=== PATIENT | female | born 1960 | race Caucasian/White ===

== ENCOUNTER 2016-06-05 13:46 | Emergency (ER) | payer OTHER ==
[~2016-06-05] VITALS: Ht 162.6 cm; Wt 104.5 kg
[~2016-06-05 13:46] MED LIST: REGLAN10 MG PO; ZOFRAN ODT4 MG PO; ZOFRAN4 MG PO
[2016-06-05 15:22] LABS: HEMATOCRIT 44.8 % (36.0-46.0); MCH 29.8 PG (29.0-34.0); MCHC 34.8 G/DL (30.0-36.0); MCV 85.7 FL (83-99); MEAN PLAT.VOLUME 9.1 uM^3 (9.5-12.4); PLATELET COUNT 321 K/uL (156-360); RBC DIS.WIDTH-CV 12.8 % (11.8-14.6); RBC DIS.WIDTH-SD 40.1 % (39-53); RED BLOOD COUNT 5.23 M/uL (3.80-5.20); WHITE BLOOD COUNT 7.4 K/uL (4.1-10.2)
[2016-06-05 15:27] LABS: CARBON DIOXIDE (BICARBONATE) 24.3 MEQ/L (20-31)
[2016-06-05 15:36] LABS: CHLORIDE 103 mEq/L (99-109); POTASSIUM 4.2 mEq/L (3.7-5.4); SODIUM 137 mEq/L (136-147)
[2016-06-05 15:38] LABS: GLUCOSE 329 mg/dL (70-99)
[2016-06-05 15:39] LABS: ANION GAP 17 MEQ/L (2-14)
[2016-06-05] MEDS ORDERED: OMEPRAZOLE20 MG PO (15:40)
[2016-06-05] MEDS ORDERED: LEXAPRO10 MG PO (15:40)
[2016-06-05] MEDS ORDERED: ATORVASTATIN CA40 MG PO (15:40)
[2016-06-05] MEDS ORDERED: WELLBUTRIN XL150 MG PO (15:41)
[2016-06-05] MEDS ORDERED: LISINOPRIL20 MG PO (15:41)
[2016-06-05 15:42] LABS: GFR ESTIMATE (CALCULATED) > 59 mL/min/
[2016-06-05] MEDS ORDERED: HUMULIN N100 UNITS/ SC ×2 (15:42)
[2016-06-05 15:43] LABS: UREA NITROGEN (BUN) 19 mg/dL (9-23)
[2016-06-05 15:46] LABS: TROP-I INTERPRETATION NEGATIVE; TROPONIN-I < 0.01 ng/mL (0.0-0.30)
[2016-06-05 18:56] LABS: ADD MIUA? NO; BILIRUBIN NEGATIVE; BLOOD NEGATIVE; COLOR YELLOW ((YELLOW)); GLUCOSE (STRIP) >=1000; KETONES 40; LEUKOCYTES NEGATIVE; NITRITE NEGATIVE; PROTEIN (STRIP) NEGATIVE; SPECIFIC GRAVITY 1.039 (1.000-1.030); UROBILINOGEN 0.2 MG/DL (0.2-1.0)
[2016-06-05] MEDS ORDERED: LORTAB 5-325 M1 EACH PO (21:29)
[2016-06-05] MEDS ORDERED: BENTYL20 MG PO (21:29)
[2016-06-05 21:53] VITALS: BP 116/63
== END 2016-06-05 21:56 | disposition home or self-care (01) ==
LOC: EME → EDBD 13:46 → EME 21:56
PROVIDERS: Physician Assistant
DX: R10.30 Lower abdominal pain, unspecified (principal); R11.2 Nausea with vomiting, unspecified; E11.9 Type 2 diabetes mellitus without complications
CPT/HCPCS: 74022; 74177; 80048; 81003; 82009; 82803; 84484; 85027; 93005; 99281; 99285; J1170; J2405; J2765; J7030; J7120

== ENCOUNTER 2016-09-12 12:36 | Emergency (ER) | payer OTHER ==
[~2016-09-12] VITALS: Ht 162.6 cm; Wt 105.0 kg
[~2016-09-12 12:36] MED LIST changes: +ATORVASTATIN CA40 MG PO; +BENTYL20 MG PO; +HUMULIN N100 UNITS/ SC; +LEXAPRO10 MG PO; +LISINOPRIL20 MG PO; +LORTAB 5-325 M1 EACH PO; +OMEPRAZOLE20 MG PO; +WELLBUTRIN XL150 MG PO
[2016-09-12] MEDS ORDERED: ZITHROMAX500 MG PO (14:35)
[2016-09-12] MEDS ORDERED: DEBROX15 ML BOTH EARS (14:35)
[2016-09-12] MEDS ORDERED: CYMBALTA20 MG PO (14:39)
[2016-09-12] MEDS ORDERED: VITAMIN B122500 MCG PO (14:40)
[2016-09-12 14:51] VITALS: BP 117/87
== END 2016-09-12 14:46 | disposition home or self-care (01) ==
LOC: EME 12:36
DX: J06.9 Acute upper respiratory infection, unspecified (principal); H61.23 Impacted cerumen, bilateral; E11.9 Type 2 diabetes mellitus without complications; E78.5 Hyperlipidemia, unspecified; I10 Essential (primary) hypertension; K21.9 Gastro-esophageal reflux disease without esophagitis; Z79.4 Long term (current) use of insulin
CPT/HCPCS: 99281; 99284

== ENCOUNTER 2016-10-21 18:40 | Emergency (ER) | payer OTHER ==
[~2016-10-21] VITALS: Ht 162.6 cm; Wt 100.0 kg
[~2016-10-21 18:40] MED LIST changes: +CYMBALTA20 MG PO; +DEBROX15 ML BOTH EARS; +VITAMIN B122500 MCG PO; +ZITHROMAX500 MG PO
[2016-10-21 19:11] LABS: HEMATOCRIT 44.7 % (36.0-46.0); MCH 29.5 PG (29.0-34.0); MCHC 33.8 G/DL (30.0-36.0); MCV 87.5 FL (83-99); MEAN PLAT.VOLUME 9.5 uM^3 (9.5-12.4); PLATELET COUNT 321 K/uL (156-360); RBC DIS.WIDTH-CV 12.5 % (11.8-14.6); RED BLOOD COUNT 5.11 M/uL (3.80-5.20); WHITE BLOOD COUNT 8.4 K/uL (4.1-10.2)
[2016-10-21 19:19] LABS: CHLORIDE 99 mEq/L (99-109); POTASSIUM 5.4 mEq/L (3.7-5.4); SODIUM 133 mEq/L (136-147)
[2016-10-21 19:22] LABS: ANION GAP 12 MEQ/L (2-14)
[2016-10-21 19:23] LABS: TOTAL BILIRUBIN 0.9 mg/dL (0.0-1.0)
[2016-10-21 19:24] LABS: ALKALINE PHOSPHATASE 147 IU/L (3-129)
[2016-10-21 19:25] LABS: GFR ESTIMATE (CALCULATED) > 59 mL/min/; GLUCOSE 445 mg/dL (70-99)
[2016-10-21 19:26] LABS: UREA NITROGEN (BUN) 23 mg/dL (9-23)
[2016-10-21 19:53] LABS: LIPASE 17 U/L (1.0-51.0)
[2016-10-21 21:03] LABS: ADD MIUA? YES; BILIRUBIN NEGATIVE; BLOOD NEGATIVE; COLOR STRAW ((YELLOW)); GLUCOSE (STRIP) >=500; KETONES 20; LEUKOCYTES SMALL; NITRITE NEGATIVE; PROTEIN (STRIP) NEGATIVE; SPECIFIC GRAVITY 1.045 (1.000-1.030); UROBILINOGEN 0.2 MG/DL (0.2-1.0)
[2016-10-21 21:11] LABS: BACTERIA NONE SEEN /HPF; EPITHELIAL CELLS 1+ /HPF; MUCUS NONE SEEN /LPF; UCUL ADDED? NO; WHITE BLOOD CELLS 15-20 /HPF (0-5)
[2016-10-21 21:55] LABS: POINT-OF-CARE METER ID UU13113702
[2016-10-21 23:44] VITALS: BP 172/77
[2016-10-22 08:37] LABS: POINT-OF-CARE METER ID UU13113702
== END 2016-10-21 23:46 | disposition home or self-care (01) ==
LOC: EME → EDBD 18:40 → EME 18:40
PROVIDERS: Emergency Medicine
DX: R10.9 Unspecified abdominal pain (principal); E11.43 Type 2 diabetes mellitus with diabetic autonomic (poly)neuropathy; K31.84 Gastroparesis; Z79.4 Long term (current) use of insulin; E78.5 Hyperlipidemia, unspecified; I10 Essential (primary) hypertension; K21.9 Gastro-esophageal reflux disease without esophagitis
CPT/HCPCS: 74177; 80053; 81003; 82948; 83690; 85027; 93005; 99281; 99285; J2270; J2405; J7030

== ENCOUNTER 2016-10-24 11:44 | Observation (INO) | payer OTHER ==
[~2016-10-24] VITALS: Ht 162.6 cm; Wt 101.3 kg
[2016-10-24 12:58] LABS: HEMATOCRIT 44.8 % (36.0-46.0); MCH 29.8 PG (29.0-34.0); MCHC 34.2 G/DL (30.0-36.0); MCV 87.3 FL (83-99); MEAN PLAT.VOLUME 9.5 uM^3 (9.5-12.4); PLATELET COUNT 290 K/uL (156-360); RBC DIS.WIDTH-CV 12.3 % (11.8-14.6); RBC DIS.WIDTH-SD 39.8 % (39-53); RED BLOOD COUNT 5.13 M/uL (3.80-5.20)
[2016-10-24 13:00] LABS: WHITE BLOOD COUNT 5.5 K/uL (4.1-10.2)
[2016-10-24 13:01] LABS: CHLORIDE 103 mEq/L (99-109); SODIUM 137 mEq/L (136-147)
[2016-10-24 13:02] LABS: POTASSIUM 3.6 mEq/L (3.7-5.4)
[2016-10-24 13:04] LABS: GLUCOSE 324 mg/dL (70-99)
[2016-10-24 13:05] LABS: ANION GAP 10 MEQ/L (2-14)
[2016-10-24 13:06] LABS: TOTAL BILIRUBIN 0.8 mg/dL (0.0-1.0)
[2016-10-24 13:07] LABS: ALKALINE PHOSPHATASE 119 IU/L (3-129); GFR ESTIMATE (CALCULATED) > 59 mL/min/
[2016-10-24 13:08] LABS: UREA NITROGEN (BUN) 19 mg/dL (9-23)
[2016-10-24 13:11] LABS: LIPASE 17 U/L (1.0-51.0)
[2016-10-24 14:40] LABS: ADD MIUA? NO; BILIRUBIN NEGATIVE; BLOOD NEGATIVE; COLOR YELLOW ((YELLOW)); GLUCOSE (STRIP) >=500; KETONES 20; LEUKOCYTES NEGATIVE; NITRITE NEGATIVE; PROTEIN (STRIP) NEGATIVE; SPECIFIC GRAVITY 1.026 (1.000-1.030); UCUL ADDED? NO; UROBILINOGEN 0.2 MG/DL (0.2-1.0)
[2016-10-24] MEDS ORDERED: VENLAFAXINE HC150 M1 PO (15:12)
[2016-10-24] MEDS ORDERED: GLIMEPIRIDE2 MG PO (16:44)
[2016-10-24 17:00] VITALS: BP 190/84
[2016-10-24 17:11] LABS: Estimated Average Glucose 249 mg/dL (70-123); HEMOGLOBIN A1c (GLYCOHEMOGLOB) 10.3 % HGB (Below 5.7)
[2016-10-24 19:00] VITALS: BP 119/57
[2016-10-24 23:34] VITALS: BP 100/50
[2016-10-25 03:33] VITALS: BP 109/66
[2016-10-25 05:36] LABS: HEMATOCRIT 40.1 % (36.0-46.0); MCH 30.9 PG (29.0-34.0); MCHC 34.2 G/DL (30.0-36.0); MCV 90.5 FL (83-99); MEAN PLAT.VOLUME 9.1 uM^3 (9.5-12.4); PLATELET COUNT 252 K/uL (156-360); RBC DIS.WIDTH-CV 12.6 % (11.8-14.6); RBC DIS.WIDTH-SD 41.7 % (39-53); RED BLOOD COUNT 4.43 M/uL (3.80-5.20); WHITE BLOOD COUNT 5.9 K/uL (4.1-10.2)
[2016-10-25 06:07] LABS: ALKALINE PHOSPHATASE 102 IU/L (3-129); ANION GAP 7 MEQ/L (2-14); CHLORIDE 108 MEQ/L (99-109); GFR ESTIMATE (CALCULATED) > 59 mL/min/; POTASSIUM 3.6 MEQ/L (3.7-5.4); SAMPLE HEMOLYSIS CHECK 0; SAMPLE ICTERIC CHECK 0; SAMPLE LIPEMIA CHECK 0; SODIUM 141 MEQ/L (136-147); TOTAL BILIRUBIN 0.6 MG/DL (0.0-1.0); UREA NITROGEN (BUN) 16 mg/dL (9-23)
[2016-10-25 06:11] LABS: GLUCOSE 153 mg/dL (70-99)
[2016-10-25 06:11] LABS: POINT-OF-CARE METER ID UU13113700
[2016-10-25 08:22] LABS: POINT-OF-CARE METER ID UU13113831
[2016-10-25 08:30] VITALS: BP 121/58
[2016-10-27 16:23] LABS: POINT-OF-CARE METER ID UU14100415
== END 2016-10-25 12:54 | disposition home or self-care (01) ==
LOC: EME → EDBD 11:44 → EDOF 15:36 → 5WEST 16:46
PROVIDERS: Emergency Medicine; Internal Medicine; Student in an Organized Health Care Education/Training Program
DX: R11.2 Nausea with vomiting, unspecified (principal); R10.13 Epigastric pain; E11.65 Type 2 diabetes mellitus with hyperglycemia; K80.20 Calculus of gallbladder without cholecystitis without obstruction; K21.9 Gastro-esophageal reflux disease without esophagitis; I10 Essential (primary) hypertension; M17.0 Bilateral primary osteoarthritis of knee; E78.5 Hyperlipidemia, unspecified; E66.9 Obesity, unspecified; Z68.38 Body mass index [BMI] 38.0-38.9, adult; Z79.4 Long term (current) use of insulin
CPT/HCPCS: 76705; 80053; 81003; 82948; 83036; 83690; 85027; 99281; 99284; C9113; G0378; J1650; J1815; J2270; J2405; J7030

== ENCOUNTER 2016-11-24 16:09 | Emergency (ER) | payer OTHER ==
[~2016-11-24] VITALS: Ht 162.6 cm; Wt 100.9 kg
[~2016-11-24 16:09] MED LIST changes: +GLIMEPIRIDE2 MG PO; +VENLAFAXINE HC150 M1 PO
[2016-11-24] MEDS ORDERED: NAPROXEN500 MG PO (19:29)
[2016-11-24 19:51] VITALS: BP 128/77
== END 2016-11-24 19:52 | disposition home or self-care (01) ==
LOC: EME 16:09
DX: S82.401A Unspecified fracture of shaft of right fibula, initial encounter for closed fracture (principal); M17.0 Bilateral primary osteoarthritis of knee; V49.40XA Driver injured in collision with unspecified motor vehicles in traffic accident, initial encounter; Z88.0 Allergy status to penicillin
CPT/HCPCS: 73564; 99281; 99283

== ENCOUNTER → 2016-12-01 | Outpatient (CLI) | payer OTHER ==
[~2016-12-01] MED LIST changes: +NAPROXEN500 MG PO
== END | disposition home or self-care (01) ==
LOC: NUC 11-19 10:00
DX: K80.20 Calculus of gallbladder without cholecystitis without obstruction (principal)
CPT/HCPCS: 78227; A9537; J2805

== ENCOUNTER 2016-12-17 07:25 | Day surgery (SDC) | payer OTHER ==
[~2016-12-17] VITALS: Ht 162.6 cm; Wt 102.0 kg
[~2016-12-17 07:25] MED LIST changes: +OMEPRAZOLE20 M2 PO; -OMEPRAZOLE20 MG PO
[2016-12-17 07:57] LABS: POINT-OF-CARE METER ID UU13113694
[2016-12-17 08:05] VITALS: BP 159/76
[2016-12-17] MEDS ORDERED: NORCO 5/3251 TABLET PO (12:12)
[2016-12-17 12:21] LABS: POINT-OF-CARE METER ID UU13113675; POINT-OF-CARE USER ID 515036437
[2016-12-17 13:55] VITALS: BP 106/57
[2016-12-17 14:55] VITALS: BP 117/57
[2016-12-17 16:15] VITALS: BP 113/55
== END 2016-12-17 16:15 | disposition home or self-care (01) ==
LOC: SDC 07:25
PROVIDERS: Surgery
PROC: 0FT44ZZ Resection of Gallbladder, Percutaneous Endoscopic Approach (ICD-10-PCS; principal; 2016-12-17)
DX: K80.10 Calculus of gallbladder with chronic cholecystitis without obstruction (principal); I10 Essential (primary) hypertension; E11.42 Type 2 diabetes mellitus with diabetic polyneuropathy; E78.00 Pure hypercholesterolemia, unspecified; K21.9 Gastro-esophageal reflux disease without esophagitis; Z79.4 Long term (current) use of insulin; Z88.0 Allergy status to penicillin
CPT/HCPCS: 82948; 88304; J0131; J0330; J1170; J1580; J2250; J2405; J2710; J3010; J7050; J7120; S0030

== ENCOUNTER 2017-01-19 15:28 | Emergency (ER) | payer OTHER ==
[~2017-01-19] VITALS: Ht 162.6 cm; Wt 103.6 kg
[~2017-01-19 15:28] MED LIST changes: +NORCO 5/3251 TABLET PO
[2017-01-19 16:23] LABS: HEMATOCRIT 46.2 % (36.0-46.0); MCH 29.2 PG (29.0-34.0); MCHC 33.3 G/DL (30.0-36.0); MCV 87.5 FL (83-99); MEAN PLAT.VOLUME 9.1 uM^3 (9.5-12.4); PLATELET COUNT 306 K/uL (156-360); RBC DIS.WIDTH-CV 13.2 % (11.8-14.6); RBC DIS.WIDTH-SD 42.5 % (39-53); RED BLOOD COUNT 5.28 M/uL (3.80-5.20); WHITE BLOOD COUNT 11.1 K/uL (4.1-10.2)
[2017-01-19 16:32] LABS: CHLORIDE 102 mEq/L (99-109); POTASSIUM 4.3 mEq/L (3.7-5.4); SODIUM 136 mEq/L (136-147)
[2017-01-19 16:34] LABS: GLUCOSE 387 mg/dL (70-99)
[2017-01-19 16:36] LABS: ANION GAP 12 MEQ/L (2-14)
[2017-01-19 16:38] LABS: GFR ESTIMATE (CALCULATED) > 59 mL/min/
[2017-01-19 16:39] LABS: UREA NITROGEN (BUN) 23 mg/dL (9-23)
[2017-01-19 16:44] LABS: D-DIMER ELISA < 150.00 ng/mLDDU (<230)
[2017-01-19 16:47] LABS: TROP-I INTERPRETATION NEGATIVE; TROPONIN-I 0.02 ng/mL (0.0-0.30)
[2017-01-19 19:18] LABS: TROP-I INTERPRETATION NEGATIVE; TROPONIN-I 0.02 ng/mL (0.0-0.30)
[2017-01-19 19:26] VITALS: BP 131/79
== END 2017-01-19 19:26 | disposition home or self-care (01) ==
LOC: EME 15:28
PROVIDERS: Nurse Practitioner Family
DX: R07.9 Chest pain, unspecified (principal); K21.9 Gastro-esophageal reflux disease without esophagitis; I10 Essential (primary) hypertension; E78.5 Hyperlipidemia, unspecified; E11.9 Type 2 diabetes mellitus without complications; Z87.442 Personal history of urinary calculi
CPT/HCPCS: 71020; 80048; 84484; 85027; 85379; 93005; 99281; 99284

== ENCOUNTER 2017-02-25 17:20 | Emergency (ER) | payer OTHER ==
[~2017-02-25] VITALS: Ht 162.6 cm; Wt 103.3 kg
[2017-02-25 18:28] LABS: HEMATOCRIT 44.7 % (36.0-46.0); MCHC 33.3 G/DL (30.0-36.0); MCV 87.1 FL (83-99); MEAN PLAT.VOLUME 9.1 uM^3 (9.5-12.4); PLATELET COUNT 279 K/uL (156-360); RBC DIS.WIDTH-CV 13.2 % (11.8-14.6); RBC DIS.WIDTH-SD 42.5 % (39-53); RED BLOOD COUNT 5.13 M/uL (3.80-5.20); WHITE BLOOD COUNT 6.5 K/uL (4.1-10.2)
[2017-02-25 18:37] LABS: CHLORIDE 104 mEq/L (99-109); SODIUM 138 mEq/L (136-147)
[2017-02-25 18:39] LABS: GLUCOSE 335 mg/dL (70-99)
[2017-02-25 18:40] LABS: ANION GAP 11 MEQ/L (2-14)
[2017-02-25 18:41] LABS: TOTAL BILIRUBIN 0.4 mg/dL (0.0-1.0)
[2017-02-25 18:42] LABS: ALKALINE PHOSPHATASE 147 IU/L (3-129)
[2017-02-25 18:42] LABS: ADD MIUA? YES; BILIRUBIN NEGATIVE; BLOOD NEGATIVE; COLOR YELLOW ((YELLOW)); GLUCOSE (STRIP) >=500; KETONES NEGATIVE; LEUKOCYTES TRACE; NITRITE NEGATIVE; PROTEIN (STRIP) NEGATIVE; SPECIFIC GRAVITY 1.032 (1.000-1.030); UROBILINOGEN 0.2 MG/DL (0.2-1.0)
[2017-02-25 18:43] LABS: GFR ESTIMATE (CALCULATED) > 59 mL/min/
[2017-02-25 18:44] LABS: UREA NITROGEN (BUN) 16 mg/dL (9-23)
[2017-02-25 18:46] LABS: LIPASE 26 U/L (1.0-51.0)
[2017-02-25 18:56] LABS: BACTERIA NONE SEEN /HPF; EPITHELIAL CELLS 1+ /HPF; MUCUS TRACE /LPF; UCUL ADDED? YES
[2017-02-25] MEDS ORDERED: ZOFRAN ODT4 MG PO (20:58)
[2017-02-25 21:02] VITALS: BP 128/92
== END 2017-02-25 21:09 | disposition home or self-care (01) ==
LOC: EME 17:20
DX: R11.2 Nausea with vomiting, unspecified (principal); E11.65 Type 2 diabetes mellitus with hyperglycemia; E78.5 Hyperlipidemia, unspecified; K21.9 Gastro-esophageal reflux disease without esophagitis; I10 Essential (primary) hypertension; F32.9 Major depressive disorder, single episode, unspecified; Z79.4 Long term (current) use of insulin; Z87.442 Personal history of urinary calculi; Z88.0 Allergy status to penicillin
CPT/HCPCS: 80053; 81003; 83690; 85027; 87086; 99281; 99285; J2270; J2405; J7030; S0028

== ENCOUNTER → 2017-02-25 | Outpatient (CLI) | payer OTHER | END | disposition home or self-care (01) | LOC: NUC 06:40 | DX: R68.81 Early satiety (principal) | CPT/HCPCS: 78264; A9541 ==

== ENCOUNTER 2017-05-03 18:58 | Emergency (ER) | payer OTHER ==
[~2017-05-03] VITALS: Ht 162.6 cm; Wt 103.6 kg
[~2017-05-03 18:58] MED LIST changes: +ANTIVERT25 MG PO
[2017-05-03 19:52] LABS: HEMATOCRIT 44.7 % (36.0-46.0); MCH 29.9 PG (29.0-34.0); MCHC 33.3 G/DL (30.0-36.0); MCV 89.6 FL (83-99); MEAN PLAT.VOLUME 8.7 uM^3 (9.5-12.4); PLATELET COUNT 294 K/uL (156-360); RBC DIS.WIDTH-CV 12.8 % (11.8-14.6); RED BLOOD COUNT 4.99 M/uL (3.80-5.20); WHITE BLOOD COUNT 6.4 K/uL (4.1-10.2)
[2017-05-03 20:01] LABS: CHLORIDE 103 mEq/L (99-109); POTASSIUM 3.9 mEq/L (3.7-5.4); SODIUM 137 mEq/L (136-147)
[2017-05-03 20:03] LABS: GLUCOSE 208 mg/dL (70-99)
[2017-05-03 20:05] LABS: ANION GAP 9 MEQ/L (2-14); TOTAL BILIRUBIN 0.3 mg/dL (0.0-1.0)
[2017-05-03 20:07] LABS: ALKALINE PHOSPHATASE 160 IU/L (3-129); GFR ESTIMATE (CALCULATED) > 59 mL/min/
[2017-05-03 20:08] LABS: UREA NITROGEN (BUN) 17 mg/dL (9-23)
[2017-05-03 20:10] LABS: LIPASE 25 U/L (1.0-51.0)
[2017-05-03 21:46] LABS: ADD MIUA? YES; BILIRUBIN NEGATIVE; BLOOD SMALL; COLOR YELLOW ((YELLOW)); GLUCOSE (STRIP) 50; KETONES NEGATIVE; LEUKOCYTES SMALL; NITRITE NEGATIVE; PROTEIN (STRIP) NEGATIVE; UROBILINOGEN 0.2 MG/DL (0.2-1.0)
[2017-05-03 21:59] LABS: BACTERIA RARE /HPF; EPITHELIAL CELLS 1+ /HPF; MUCUS TRACE /LPF; RED BLOOD CELLS 0-5 /HPF (0-5); UCUL ADDED? YES
[2017-05-03 22:50] VITALS: BP 149/85
== END 2017-05-03 22:50 | disposition home or self-care (01) ==
LOC: EME 18:58
DX: R10.30 Lower abdominal pain, unspecified (principal); R11.2 Nausea with vomiting, unspecified; R19.7 Diarrhea, unspecified; E11.9 Type 2 diabetes mellitus without complications; Z79.4 Long term (current) use of insulin; I10 Essential (primary) hypertension; E78.5 Hyperlipidemia, unspecified; Z87.442 Personal history of urinary calculi
CPT/HCPCS: 74177; 80053; 81003; 83690; 85027; 87086; 87177; 87493; 87506; 99281; 99285; J1885; J2405; J2765; J7030

== ENCOUNTER 2017-06-12 12:59 | Emergency (ER) | payer OTHER ==
[~2017-06-12] VITALS: Ht 162.6 cm; Wt 103.0 kg
[2017-06-12] MEDS ORDERED: FLEXERIL10 MG PO (15:43)
[2017-06-12] MEDS ORDERED: KEFLEX500 MG PO (15:43)
[2017-06-12] MEDS ORDERED: LIDODERM 5% P1 PATCH TD (15:43)
[2017-06-12] MEDS ORDERED: MOTRIN800 MG PO (15:43)
[2017-06-12 16:41] VITALS: BP 142/89
== END 2017-06-12 16:55 | disposition home or self-care (01) ==
LOC: EME 12:59
DX: S39.012A Strain of muscle, fascia and tendon of lower back, initial encounter (principal); S70.01XA Contusion of right hip, initial encounter; S80.01XA Contusion of right knee, initial encounter; L03.115 Cellulitis of right lower limb; W18.2XXA Fall in (into) shower or empty bathtub, initial encounter; Y93.E1 Activity, personal bathing and showering; E11.9 Type 2 diabetes mellitus without complications; Z79.4 Long term (current) use of insulin; E78.5 Hyperlipidemia, unspecified; F32.9 Major depressive disorder, single episode, unspecified; Z87.442 Personal history of urinary calculi; Z88.0 Allergy status to penicillin
CPT/HCPCS: 72100; 73502; 73564; 99281; 99284

== ENCOUNTER 2017-07-08 15:27 | Inpatient (IN) | payer OTHER ==
[~2017-07-08] VITALS: Ht 162.6 cm; Wt 103.8 kg
[~2017-07-08 15:27] MED LIST changes: +FLEXERIL10 MG PO; +KEFLEX500 MG PO; +LIDODERM 5% P1 PATCH TD; +MOTRIN800 MG PO
[2017-07-08 16:21] LABS: BASOPHIL (%) 0.2 % (0-1); EOSINOPHIL (%) 0.8 % (0-5); EOSINOPHIL COUNT 0.1 K/uL (0-0.3); HEMATOCRIT 42.2 % (36.0-46.0); HEMOGLOBIN 13.9 G/DL (11.9-15.5); IMMATURE GRANULOCYTE (%) 0.4 % (0.0-0.7); LYMPHOCYTE (%) 14.5 % (15-42); LYMPHOCYTE COUNT 1.5 K/uL (1.0-2.8); MCH 29.8 PG (29.0-34.0); MCHC 32.9 G/DL (30.0-36.0); MCV 90.4 FL (83-99); MONOCYTE (%) 7.4 % (3-12); MONOCYTE COUNT 0.8 K/uL (0-0.8); NEUTROPHIL (%) 76.7 % (45-76); NEUTROPHIL COUNT 7.8 K/uL (1.8-6.4); PLATELET COUNT 340 K/uL (156-360); RBC DIS.WIDTH-CV 13.6 % (11.8-14.6); RBC DIS.WIDTH-SD 45.1 % (39-53); RED BLOOD COUNT 4.67 M/uL (3.80-5.20); WHITE BLOOD COUNT 10.1 K/uL (4.1-10.2)
[2017-07-08 16:33] LABS: CHLORIDE 98 MEQ/L (99-109); POTASSIUM 3.7 MEQ/L (3.7-5.4); SODIUM 133 MEQ/L (136-147)
[2017-07-08 16:38] LABS: CREATININE 0.8 MG/DL (0.6-1.3); GFR ESTIMATE (CALCULATED) > 59 mL/min/; GLUCOSE 313 mg/dL (70-99); UREA NITROGEN (BUN) 18 mg/dL (9-23)
[2017-07-08] MEDS ORDERED: BACTRIM,SEPT1 TABLET PO (18:59)
[2017-07-08 19:55] LABS: BILIRUBIN NEGATIVE; BLOOD NEGATIVE; COLOR YELLOW ((YELLOW)); GLUCOSE (STRIP) >=500; KETONES 5; LEUKOCYTES NEGATIVE; NITRITE NEGATIVE; PROTEIN (STRIP) 30; SPECIFIC GRAVITY 1.037 (1.000-1.030); UROBILINOGEN 0.2 MG/DL (0.2-1.0)
[2017-07-08 20:03] LABS: APPEARANCE CLOUDY ((CLEAR))
[2017-07-08 20:38] LABS: BACTERIA 1+ /HPF; EPITHELIAL CELLS 4+ /HPF; MUCUS NONE SEEN /LPF; RED BLOOD CELLS NONE SEEN /HPF (0-5); UCUL ADDED? NO; WHITE BLOOD CELLS RARE /HPF (0-5)
[2017-07-08] MEDS ORDERED: LOVAZA1 GM PO (21:39)
[2017-07-08] MEDS ORDERED: CHILD ASPIRIN81 M1 PO (21:39)
[2017-07-08] MEDS ORDERED: CENTRUM SILVER1 EAC4 PO (21:40)
[2017-07-08] MEDS ORDERED: TYLENOL EXTRA500 MG PO (21:40)
[2017-07-08] MEDS ORDERED: BASAGLAR K100 UNIT/1 SC (21:40)
[2017-07-08] MEDS ORDERED: CLARITIN,ALAVAR10 MG PO (21:41)
[2017-07-08 21:57] VITALS: BP 178/78
[2017-07-08 23:50] VITALS: BP 140/65
[2017-07-09 03:59] VITALS: BP 138/62
[2017-07-09 06:33] LABS: BASOPHIL (%) 0.2 % (0-1); EOSINOPHIL (%) 1.2 % (0-5); EOSINOPHIL COUNT 0.1 K/uL (0-0.3); HEMATOCRIT 37.3 % (36.0-46.0); HEMOGLOBIN 12.3 G/DL (11.9-15.5); IMMATURE GRANULOCYTE (%) 0.5 % (0.0-0.7); LYMPHOCYTE (%) 16.7 % (15-42); LYMPHOCYTE COUNT 1.4 K/uL (1.0-2.8); MCH 29.9 PG (29.0-34.0); MCV 90.5 FL (83-99); MONOCYTE (%) 9.4 % (3-12); MONOCYTE COUNT 0.8 K/uL (0-0.8); NEUTROPHIL COUNT 5.8 K/uL (1.8-6.4); PLATELET COUNT 289 K/uL (156-360); RBC DIS.WIDTH-CV 13.6 % (11.8-14.6); RBC DIS.WIDTH-SD 45.1 % (39-53); RED BLOOD COUNT 4.12 M/uL (3.80-5.20); WHITE BLOOD COUNT 8.1 K/uL (4.1-10.2)
[2017-07-09 06:55] LABS: ALBUMIN 3.3 G/DL (3.2-4.8); ALKALINE PHOSPHATASE 132 IU/L (3-129); ALT (GPT) 20 IU/L (3-49); AST (GOT) 16 IU/L (2-34); CHLORIDE 106 MEQ/L (99-109); CREATININE 0.5 MG/DL (0.6-1.3); GFR ESTIMATE (CALCULATED) > 59 mL/min/; GLUCOSE 194 mg/dL (70-99); MAGNESIUM 1.9 mg/dl (1.3-2.7); PHOSPHORUS 3.2 mg/dL (2.5-4.9); SODIUM 139 MEQ/L (136-147); TOTAL BILIRUBIN 0.5 MG/DL (0.0-1.0); TOTAL PROTEIN 6.3 G/DL (6.4-8.3); UREA NITROGEN (BUN) 14 mg/dL (9-23)
[2017-07-09 07:32] VITALS: BP 122/58
[2017-07-09 12:01] VITALS: BP 138/67
[2017-07-09 17:33] VITALS: BP 133/64
[2017-07-09 20:24] VITALS: BP 111/57
[2017-07-10] VITALS (7 sets, daily range): BP systolic 96–127; BP diastolic 44–61
[2017-07-11 03:34] VITALS: BP 117/57
[2017-07-11 08:00] VITALS: BP 128/65
[2017-07-11 12:00] VITALS: BP 157/67
[2017-07-11 16:00] VITALS: BP 139/69
[2017-07-11 23:52] VITALS: BP 163/71
[2017-07-12 07:06] LABS: HEMATOCRIT 32.9 % (36.0-46.0); HEMOGLOBIN 10.7 G/DL (11.9-15.5); MCH 29.3 PG (29.0-34.0); MCHC 32.5 G/DL (30.0-36.0); MCV 90.1 FL (83-99); PLATELET COUNT 362 K/uL (156-360); RBC DIS.WIDTH-CV 13.2 % (11.8-14.6); RBC DIS.WIDTH-SD 44.4 % (39-53); RED BLOOD COUNT 3.65 M/uL (3.80-5.20); WHITE BLOOD COUNT 7.7 K/uL (4.1-10.2)
[2017-07-12 07:32] LABS: CHLORIDE 104 MEQ/L (99-109); CREATININE 0.5 MG/DL (0.6-1.3); GFR ESTIMATE (CALCULATED) > 59 mL/min/; GLUCOSE 126 mg/dL (70-99); SODIUM 140 MEQ/L (136-147); UREA NITROGEN (BUN) 12 mg/dL (9-23)
[2017-07-12 07:32] LABS: BASOPHIL (%) 0.3 % (0-1); EOSINOPHIL (%) 1.7 % (0-5); EOSINOPHIL COUNT 0.1 K/uL (0-0.3); IMMATURE GRANULOCYTE (%) 0.4 % (0.0-0.7); LYMPHOCYTE (%) 23.1 % (15-42); LYMPHOCYTE COUNT 1.8 K/uL (1.0-2.8); MONOCYTE (%) 9.9 % (3-12); MONOCYTE COUNT 0.8 K/uL (0-0.8); NEUTROPHIL (%) 64.6 % (45-76)
[2017-07-12 08:00] VITALS: BP 150/78
[2017-07-12 16:00] VITALS: BP 124/58
[2017-07-13 00:18] VITALS: BP 135/64
[2017-07-13 07:40] VITALS: BP 127/64
[2017-07-13 16:28] VITALS: BP 130/70
[2017-07-13 23:05] VITALS: BP 148/67
[2017-07-14 07:02] VITALS: BP 119/67
[2017-07-14 11:34] VITALS: BP 123/58
[2017-07-14 16:00] VITALS: BP 146/65
[2017-07-14 23:22] VITALS: BP 128/62
[2017-07-15 08:00] VITALS: BP 111/53
[2017-07-15 12:00] VITALS: BP 126/59
[2017-07-15 16:26] VITALS: BP 156/67
[2017-07-16 00:41] VITALS: BP 135/61
[2017-07-16 06:21] LABS: BASOPHIL (%) 0.3 % (0-1); EOSINOPHIL (%) 1.5 % (0-5); EOSINOPHIL COUNT 0.1 K/uL (0-0.3); HEMATOCRIT 36.7 % (36.0-46.0); HEMOGLOBIN 11.9 G/DL (11.9-15.5); IMMATURE GRANULOCYTE (%) 0.5 % (0.0-0.7); LYMPHOCYTE (%) 27.3 % (15-42); MCH 29.6 PG (29.0-34.0); MCHC 32.4 G/DL (30.0-36.0); MCV 91.3 FL (83-99); MONOCYTE (%) 7.5 % (3-12); MONOCYTE COUNT 0.6 K/uL (0-0.8); NEUTROPHIL (%) 62.9 % (45-76); NEUTROPHIL COUNT 4.7 K/uL (1.8-6.4); PLATELET COUNT 390 K/uL (156-360); RBC DIS.WIDTH-CV 13.2 % (11.8-14.6); RBC DIS.WIDTH-SD 43.8 % (39-53); RED BLOOD COUNT 4.02 M/uL (3.80-5.20); WHITE BLOOD COUNT 7.4 K/uL (4.1-10.2)
[2017-07-16 06:44] LABS: CHLORIDE 104 MEQ/L (99-109); CREATININE 0.5 MG/DL (0.6-1.3); GFR ESTIMATE (CALCULATED) > 59 mL/min/; GLUCOSE 131 mg/dL (70-99); POTASSIUM 4.2 MEQ/L (3.7-5.4); SODIUM 142 MEQ/L (136-147); UREA NITROGEN (BUN) 13 mg/dL (9-23)
[2017-07-16 07:16] VITALS: BP 139/63
[2017-07-16] MEDS ORDERED: ENDOCET 5-3251 EACH PO (13:18)
== END 2017-07-16 16:46 | disposition home health service (06) | DRG 579 ==
LOC: EME 15:27 → EDOF 20:15 → 2EAST 20:15 → ENRESERV 20:20 → 2EAST 21:32
PROVIDERS: Internal Medicine; Nurse Practitioner Family; Physician Assistant; Surgery
DX: L03.116 Cellulitis of left lower limb (principal); M79.5 Residual foreign body in soft tissue; S90.852A Superficial foreign body, left foot, initial encounter; L03.115 Cellulitis of right lower limb; J18.9 Pneumonia, unspecified organism; Z68.39 Body mass index [BMI] 39.0-39.9, adult; E11.628 Type 2 diabetes mellitus with other skin complications; S91.301A Unspecified open wound, right foot, initial encounter; S91.302A Unspecified open wound, left foot, initial encounter; E66.9 Obesity, unspecified; M71.20 Synovial cyst of popliteal space [Baker], unspecified knee; B37.0 Candidal stomatitis; F32.9 Major depressive disorder, single episode, unspecified; W45.8XXA Other foreign body or object entering through skin, initial encounter; I10 Essential (primary) hypertension; K21.9 Gastro-esophageal reflux disease without esophagitis; E11.42 Type 2 diabetes mellitus with diabetic polyneuropathy; E78.5 Hyperlipidemia, unspecified; E78.00 Pure hypercholesterolemia, unspecified; B96.7 Clostridium perfringens [C. perfringens] as the cause of diseases classified elsewhere; Z87.442 Personal history of urinary calculi; Z87.11 Personal history of peptic ulcer disease; Z79.899 Other long term (current) drug therapy; Z79.4 Long term (current) use of insulin; Z79.2 Long term (current) use of antibiotics; Z90.49 Acquired absence of other specified parts of digestive tract
CPT/HCPCS: 71046; 73630; 73720; 76000; 76937; 80048; 80053; 81003; 82948; 83605; 83735; 84100; 85025; 87040; 87070; 87075; 87076; 87205; 87502; 88300; 88304; 93971; 99281; 99285; A6260; C1894; J0131; J0295; J0696; J1650; J1815; J2250; J2405; J3010; J3370; J7050; S0020

== ENCOUNTER → 2017-07-23 | Outpatient (CLI) | payer OTHER ==
[~2017-07-23] MED LIST changes: +BACTRIM,SEPT1 TABLET PO; +BASAGLAR K100 UNIT/1 SC; +CENTRUM SILVER1 EAC4 PO; +CHILD ASPIRIN81 M1 PO; +CLARITIN,ALAVAR10 MG PO; +ENDOCET 5-3251 EACH PO; +LOVAZA1 GM PO; +TYLENOL EXTRA500 MG PO
== END | disposition home or self-care (01) ==
LOC: PICC 14:00
DX: L02.612 Cutaneous abscess of left foot (principal); B96.7 Clostridium perfringens [C. perfringens] as the cause of diseases classified elsewhere; Z98.890 Other specified postprocedural states; J18.9 Pneumonia, unspecified organism
CPT/HCPCS: 76937

== ENCOUNTER 2017-08-18 15:10 | Inpatient (IN) | payer OTHER ==
[~2017-08-18] VITALS: Ht 162.6 cm; Wt 103.3 kg
[2017-08-18 15:55] LABS: HEMATOCRIT 41.4 % (36.0-46.0); HEMOGLOBIN 14.1 G/DL (11.9-15.5); MCH 29.5 PG (29.0-34.0); MCHC 34.1 G/DL (30.0-36.0); MCV 86.6 FL (83-99); PLATELET COUNT 321 K/uL (156-360); RBC DIS.WIDTH-CV 13.5 % (11.8-14.6); RBC DIS.WIDTH-SD 42.6 % (39-53); RED BLOOD COUNT 4.78 M/uL (3.80-5.20); WHITE BLOOD COUNT 6.2 K/uL (4.1-10.2)
[2017-08-18 16:03] LABS: ALBUMIN 3.7 g/dL (3.2-4.8)
[2017-08-18 16:04] LABS: CHLORIDE 99 mEq/L (99-109); POTASSIUM 3.9 mEq/L (3.7-5.4); SODIUM 135 mEq/L (136-147)
[2017-08-18 16:06] LABS: GLUCOSE 365 mg/dL (70-99); TOTAL PROTEIN 7.2 g/dL (6.4-8.3)
[2017-08-18 16:08] LABS: TOTAL BILIRUBIN 0.5 mg/dL (0.0-1.0)
[2017-08-18 16:09] LABS: ALKALINE PHOSPHATASE 137 IU/L (3-129)
[2017-08-18 16:10] LABS: CREATININE 0.8 mg/dL (0.6-1.3); GFR ESTIMATE (CALCULATED) > 59 mL/min/
[2017-08-18 16:11] LABS: UREA NITROGEN (BUN) 13 mg/dL (9-23)
[2017-08-18 16:12] LABS: ALT (GPT) 13 IU/L (3-49); AST (GOT) 11 IU/L (2-34)
[2017-08-18 16:27] LABS: LIPASE 12 U/L (1.0-51.0)
[2017-08-18 17:17] LABS: APPEARANCE SL.HAZY ((CLEAR)); BILIRUBIN NEGATIVE; BLOOD NEGATIVE; COLOR YELLOW ((YELLOW)); GLUCOSE (STRIP) >=500; KETONES NEGATIVE; LEUKOCYTES NEGATIVE; NITRITE NEGATIVE; PROTEIN (STRIP) NEGATIVE; SPECIFIC GRAVITY 1.031 (1.000-1.030); UROBILINOGEN 0.2 MG/DL (0.2-1.0)
[2017-08-18 17:37] LABS: AMPHETAMINE NEGATIVE (500 ng/mL); BENZODIAZEPINES NEGATIVE (150 ng/mL); COCAINE NEGATIVE (150 ng/mL); METHAMPHETAMINE NEGATIVE (500 ng/mL); OPIATES (MORPHINE) NEGATIVE (100 ng/mL); PHENCYCLIDINE NEGATIVE (25 ng/mL); THC CANNABINOIDS NEGATIVE (50 ng/mL)
[2017-08-18 17:38] LABS: BARBITURATES NEGATIVE (200 ng/mL); BUPRENORPHINE NEGATIVE (10 ng/mL); METHADONE NEGATIVE (200 ng/mL); OXYCODONE PRESUMPTIVE POSITIVE (100 ng/mL); PROPOXYPHENE NEGATIVE (300 ng/mL); TRICYCLIC ANTIDEPRESSANTS NEGATIVE (300 ng/mL)
[2017-08-18 17:39] LABS: BACTERIA RARE /HPF; EPITHELIAL CELLS 1+ /HPF; MUCUS TRACE /LPF; UCUL ADDED? NO; WHITE BLOOD CELLS 0-5 /HPF (0-5)
[2017-08-19 03:18] VITALS: BP 160/69
[2017-08-19 07:11] VITALS: BP 101/59
[2017-08-19] MEDS ORDERED: LOVAZA1 GM PO (12:04)
[2017-08-19] MEDS ORDERED: ZOSYN 3.373.375 GM/5 IV (12:05)
[2017-08-19 15:01] VITALS: BP 158/70
[2017-08-19 23:29] VITALS: BP 110/54
[2017-08-20 06:05] LABS: HEMOGLOBIN 12.5 G/DL (11.9-15.5); MCH 29.3 PG (29.0-34.0); MCHC 32.9 G/DL (30.0-36.0); MCV 89.2 FL (83-99); NRBC (%) 0.4 /100 WBC (0-0); PLATELET COUNT 276 K/uL (156-360); RBC DIS.WIDTH-CV 13.8 % (11.8-14.6); RBC DIS.WIDTH-SD 44.9 % (39-53); RED BLOOD COUNT 4.26 M/uL (3.80-5.20); WHITE BLOOD COUNT 4.7 K/uL (4.1-10.2)
[2017-08-20 06:28] LABS: CHLORIDE 103 MEQ/L (99-109); CREATININE 0.6 MG/DL (0.6-1.3); GFR ESTIMATE (CALCULATED) > 59 mL/min/; GLUCOSE 228 mg/dL (70-99); POTASSIUM 3.5 MEQ/L (3.7-5.4); SODIUM 140 MEQ/L (136-147); UREA NITROGEN (BUN) 8 mg/dL (9-23)
[2017-08-20 08:03] VITALS: BP 122/58
[2017-08-20 11:04] VITALS: BP 128/70
[2017-08-20 19:20] VITALS: BP 138/64
[2017-08-21 00:09] VITALS: BP 136/63
[2017-08-21 04:13] VITALS: BP 105/49
[2017-08-21 07:05] VITALS: BP 124/58
[2017-08-21 11:29] VITALS: BP 138/58
[2017-08-21 15:53] VITALS: BP 136/62
[2017-08-21 23:46] VITALS: BP 117/56
[2017-08-22 06:09] LABS: HEMATOCRIT 33.5 % (36.0-46.0); HEMOGLOBIN 11.1 G/DL (11.9-15.5); MCH 29.4 PG (29.0-34.0); MCHC 33.1 G/DL (30.0-36.0); MCV 88.6 FL (83-99); PLATELET COUNT 252 K/uL (156-360); RBC DIS.WIDTH-CV 13.8 % (11.8-14.6); RBC DIS.WIDTH-SD 44.9 % (39-53); RED BLOOD COUNT 3.78 M/uL (3.80-5.20); WHITE BLOOD COUNT 6.1 K/uL (4.1-10.2)
[2017-08-22 06:38] LABS: CHLORIDE 102 MEQ/L (99-109); CREATININE 0.6 MG/DL (0.6-1.3); GFR ESTIMATE (CALCULATED) > 59 mL/min/; GLUCOSE 291 mg/dL (70-99); POTASSIUM 3.7 MEQ/L (3.7-5.4); SODIUM 139 MEQ/L (136-147); UREA NITROGEN (BUN) 4 mg/dL (9-23)
[2017-08-22 07:04] VITALS: BP 116/55
[2017-08-22 15:06] VITALS: BP 134/71
[2017-08-23 00:53] VITALS: BP 122/58
[2017-08-23 06:44] LABS: HEMATOCRIT 34.5 % (36.0-46.0); MCH 28.1 PG (29.0-34.0); MCHC 31.9 G/DL (30.0-36.0); PLATELET COUNT 286 K/uL (156-360); RBC DIS.WIDTH-CV 13.9 % (11.8-14.6); RBC DIS.WIDTH-SD 44.9 % (39-53); RED BLOOD COUNT 3.92 M/uL (3.80-5.20); WHITE BLOOD COUNT 4.6 K/uL (4.1-10.2)
[2017-08-23 07:02] LABS: CHLORIDE 102 MEQ/L (99-109); CREATININE 0.5 MG/DL (0.6-1.3); GFR ESTIMATE (CALCULATED) > 59 mL/min/; GLUCOSE 296 mg/dL (70-99); POTASSIUM 3.7 MEQ/L (3.7-5.4); SODIUM 136 MEQ/L (136-147); UREA NITROGEN (BUN) 8 mg/dL (9-23)
[2017-08-23 08:34] VITALS: BP 146/65
[2017-08-23] MEDS ORDERED: LEVOFLOXACIN750 MG PO (12:19)
== END 2017-08-23 13:52 | disposition home health service (06) | DRG 617 ==
LOC: EME 15:10 → 5SOUTH 08-19 00:31 → EDOF 08-19 00:31 → ENRESERV 08-19 00:40 → 5SOUTH 08-19 02:48 → ENPENDDIS 08-23 12:30 → 5SOUTH 08-23 13:52
PROVIDERS: Emergency Medicine; Hospitalist; Internal Medicine
DX: E11.69 Type 2 diabetes mellitus with other specified complication (principal); M86.172 Other acute osteomyelitis, left ankle and foot; L03.116 Cellulitis of left lower limb; E11.621 Type 2 diabetes mellitus with foot ulcer; L97.528 Non-pressure chronic ulcer of other part of left foot with other specified severity; E11.42 Type 2 diabetes mellitus with diabetic polyneuropathy; E11.65 Type 2 diabetes mellitus with hyperglycemia; E11.319 Type 2 diabetes mellitus with unspecified diabetic retinopathy without macular edema; E87.6 Hypokalemia; B96.5 Pseudomonas (aeruginosa) (mallei) (pseudomallei) as the cause of diseases classified elsewhere; Z16.39 Resistance to other specified antimicrobial drug; I10 Essential (primary) hypertension; E78.5 Hyperlipidemia, unspecified; K21.9 Gastro-esophageal reflux disease without esophagitis; F32.9 Major depressive disorder, single episode, unspecified; K59.00 Constipation, unspecified; E66.9 Obesity, unspecified; Z68.39 Body mass index [BMI] 39.0-39.9, adult; Z79.4 Long term (current) use of insulin; Z79.82 Long term (current) use of aspirin; Z87.01 Personal history of pneumonia (recurrent); Z87.442 Personal history of urinary calculi
CPT/HCPCS: 71045; 73630; 74176; 80048; 80053; 81003; 82948; 83036; 83690; 85027; 87070; 87075; 87077; 87116; 87186; 87205; 87206; 88305; 88311; 93005; 97597; 99213 25; 99281; 99285; J0131; J1644; J1815; J1885; J1940; J2060; J2250; J2270; J2405; J2543; J3370; J7030; J7040; J7050; S0020; S0028

== ENCOUNTER 2017-09-05 04:25 | Emergency (ER) | payer OTHER ==
[~2017-09-05] VITALS: Ht 162.6 cm; Wt 99.1 kg
[~2017-09-05 04:25] MED LIST changes: +LEVOFLOXACIN750 MG PO; +ZOSYN 3.373.375 GM/5 IV
[2017-09-05 05:08] LABS: HEMATOCRIT 42.8 % (36.0-46.0); HEMOGLOBIN 14.4 G/DL (11.9-15.5); MCH 28.9 PG (29.0-34.0); MCHC 33.6 G/DL (30.0-36.0); MCV 85.9 FL (83-99); PLATELET COUNT 305 K/uL (156-360); RBC DIS.WIDTH-CV 13.4 % (11.8-14.6); RBC DIS.WIDTH-SD 41.9 % (39-53); RED BLOOD COUNT 4.98 M/uL (3.80-5.20); WHITE BLOOD COUNT 7.3 K/uL (4.1-10.2)
[2017-09-05 05:15] LABS: ALBUMIN 3.9 g/dL (3.2-4.8); CHLORIDE 101 mEq/L (99-109); POTASSIUM 5.1 mEq/L (3.7-5.4); SODIUM 137 mEq/L (136-147)
[2017-09-05 05:17] LABS: TOTAL PROTEIN 6.7 g/dL (6.4-8.3)
[2017-09-05 05:19] LABS: GLUCOSE 436 mg/dL (70-99); TOTAL BILIRUBIN 0.8 mg/dL (0.0-1.0)
[2017-09-05 05:21] LABS: ALKALINE PHOSPHATASE 165 IU/L (3-129); CREATININE 0.9 mg/dL (0.6-1.3); GFR ESTIMATE (CALCULATED) > 59 mL/min/
[2017-09-05 05:22] LABS: UREA NITROGEN (BUN) 20 mg/dL (9-23)
[2017-09-05 05:23] LABS: AST (GOT) 15 IU/L (2-34)
[2017-09-05 05:24] LABS: ALT (GPT) 25 IU/L (3-49); LIPASE 15 U/L (1.0-51.0)
[2017-09-05 05:27] LABS: TROP-I INTERPRETATION NEGATIVE; TROPONIN-I < 0.01 ng/mL (0.0-0.30)
[2017-09-05 06:49] VITALS: BP 106/84
== END 2017-09-05 06:49 | disposition home or self-care (01) ==
LOC: EME 04:25
PROVIDERS: Emergency Medicine
DX: R11.2 Nausea with vomiting, unspecified (principal); E11.65 Type 2 diabetes mellitus with hyperglycemia; Z79.4 Long term (current) use of insulin; I10 Essential (primary) hypertension; E78.5 Hyperlipidemia, unspecified; K21.9 Gastro-esophageal reflux disease without esophagitis; F32.9 Major depressive disorder, single episode, unspecified; Z79.82 Long term (current) use of aspirin; Z87.442 Personal history of urinary calculi; Z90.49 Acquired absence of other specified parts of digestive tract; Z88.0 Allergy status to penicillin; Z88.1 Allergy status to other antibiotic agents
CPT/HCPCS: 80053; 82948; 83690; 84484; 85027; 93005; 99281; 99285; J1630; J2405; J2765; J3010; J7030

== ENCOUNTER 2017-09-09 13:12 | Emergency (ER) | payer OTHER ==
[~2017-09-09] VITALS: Ht 162.6 cm; Wt 96.1 kg
[2017-09-09 14:14] LABS: HEMATOCRIT 41.8 % (36.0-46.0); HEMOGLOBIN 14.2 G/DL (11.9-15.5); MCH 28.9 PG (29.0-34.0); RBC DIS.WIDTH-CV 13.5 % (11.8-14.6); RED BLOOD COUNT 4.92 M/uL (3.80-5.20); WHITE BLOOD COUNT 7.1 K/uL (4.1-10.2)
[2017-09-09 14:20] LABS: PLATELET COUNT 291 K/uL (156-360)
[2017-09-09 14:24] LABS: ALBUMIN 3.8 g/dL (3.2-4.8)
[2017-09-09 14:25] LABS: CHLORIDE 102 mEq/L (99-109); POTASSIUM 3.6 mEq/L (3.7-5.4); SODIUM 137 mEq/L (136-147)
[2017-09-09 14:27] LABS: GLUCOSE 339 mg/dL (70-99); TOTAL PROTEIN 6.7 g/dL (6.4-8.3)
[2017-09-09 14:30] LABS: ALKALINE PHOSPHATASE 155 IU/L (3-129)
[2017-09-09 14:31] LABS: CREATININE 0.9 mg/dL (0.6-1.3); GFR ESTIMATE (CALCULATED) > 59 mL/min/
[2017-09-09 14:32] LABS: AST (GOT) 15 IU/L (2-34); UREA NITROGEN (BUN) 25 mg/dL (9-23)
[2017-09-09 14:34] LABS: ALT (GPT) 24 IU/L (3-49); LIPASE 33 U/L (1.0-51.0)
[2017-09-09 14:36] LABS: TOTAL BILIRUBIN 0.6 mg/dL (0.0-1.0)
[2017-09-09 17:11] LABS: APPEARANCE SL.HAZY ((CLEAR)); BILIRUBIN NEGATIVE; BLOOD NEGATIVE; COLOR YELLOW ((YELLOW)); GLUCOSE (STRIP) >=500; KETONES 5; LEUKOCYTES NEGATIVE; NITRITE NEGATIVE; PROTEIN (STRIP) NEGATIVE; SPECIFIC GRAVITY 1.036 (1.000-1.030); UROBILINOGEN 0.2 MG/DL (0.2-1.0)
[2017-09-09 17:13] LABS: BACTERIA NONE SEEN /HPF; EPITHELIAL CELLS 1+ /HPF; MUCUS TRACE /LPF; RED BLOOD CELLS 0-5 /HPF (0-5); WHITE BLOOD CELLS 0-5 /HPF (0-5)
[2017-09-09] MEDS ORDERED: PERCOCET 5/31 TABLET PO (19:19)
[2017-09-09] MEDS ORDERED: PHENERGAN25 MG PR (19:19)
[2017-09-09 19:47] VITALS: BP 131/79
== END 2017-09-09 20:00 | disposition home or self-care (01) ==
LOC: EME 13:12
PROVIDERS: Physician Assistant
DX: R10.84 Generalized abdominal pain (principal); R11.2 Nausea with vomiting, unspecified; E78.5 Hyperlipidemia, unspecified; I10 Essential (primary) hypertension; E11.9 Type 2 diabetes mellitus without complications; K21.9 Gastro-esophageal reflux disease without esophagitis; Z90.49 Acquired absence of other specified parts of digestive tract; F32.9 Major depressive disorder, single episode, unspecified; Z87.442 Personal history of urinary calculi; Z88.0 Allergy status to penicillin
CPT/HCPCS: 74177; 80053; 81003; 82948; 83690; 85027; 99281; 99285; J0780; J2405; J2550; J3010; J7040

== ENCOUNTER 2017-12-10 17:53 | Emergency (ER) | payer OTHER ==
[~2017-12-10] VITALS: Ht 167.6 cm; Wt 111.6 kg
[~2017-12-10 17:53] MED LIST changes: +PERCOCET 5/31 TABLET PO; +PHENERGAN25 MG PR
[2017-12-10 18:12] LABS: HEMOGLOBIN 13.7 G/DL (11.9-15.5); MCHC 31.9 G/DL (30.0-36.0); MCV 94.1 FL (83-99); NRBC (%) 0.5 /100 WBC (0-0); PLATELET COUNT 333 K/uL (156-360); RBC DIS.WIDTH-CV 13.9 % (11.8-14.6); RED BLOOD COUNT 4.57 M/uL (3.80-5.20); WHITE BLOOD COUNT 8.4 K/uL (4.1-10.2)
[2017-12-10 18:21] LABS: COMMENTS - BLOOD GASES A+C+; DEVICE 840; FI02 100 %; MECHANICAL RATE 20 resp/min; MODE AC; PEEP 5 CM/H20; SITE RR; TIDAL VOLUME 450 ML; TOTAL RESP RATE 20 resp/min
[2017-12-10 18:21] LABS: INTER. NORMALIZED RATIO 1.1; PTT 33.4 SEC (25-37)
[2017-12-10 18:22] LABS: PCO2 73 mm Hg (35-45); PO2 131 mm Hg (80-100)
[2017-12-10 18:23] LABS: BASE EXCESS -19.1 mEq/L (-3 to +3); BICARBONATE 14.6 mEq/L (22-26); CARBOXY HGB 1.2 % (0-5); METHEMOGLOBIN 0.8 % (0-1.5)
[2017-12-10 18:24] LABS: AMYLASE 110 IU/L (1-118); CHLORIDE 99 mEq/L (99-109); SODIUM 139 mEq/L (136-147)
[2017-12-10 18:24] LABS: pH 6.91 (7.35-7.45)
[2017-12-10 18:29] LABS: SERUM ETHYL ALCOHOL < 10 mg/dL
[2017-12-10 18:30] LABS: CREATININE 1.2 mg/dL (0.6-1.3); GFR ESTIMATE (CALCULATED) 49 mL/min/
[2017-12-10 18:31] LABS: UREA NITROGEN (BUN) 15 mg/dL (9-23)
[2017-12-10 18:33] LABS: LIPASE 53 U/L (1.0-51.0)
[2017-12-10 18:43] LABS: GLUCOSE 503 mg/dL (70-99)
[2017-12-10 18:46] LABS: APPEARANCE CLEAR ((CLEAR)); BILIRUBIN NEGATIVE; BLOOD SMALL; COLOR YELLOW ((YELLOW)); GLUCOSE (STRIP) >=500; KETONES NEGATIVE; LEUKOCYTES SMALL; NITRITE NEGATIVE; PROTEIN (STRIP) NEGATIVE; SPECIFIC GRAVITY 1.021 (1.000-1.030); UROBILINOGEN 0.2 MG/DL (0.2-1.0)
[2017-12-10 18:54] LABS: ANISOCYTOSIS NONE SEEN; BAND NEUTROPHILS 2.7 % (0-8.0); EOSINOPHIL ABS CT 0.1; EOSINOPHILS 0.9 % (0-5.0); LYMPHOCYTES 31.9 % (15.0-45.0); METAMYELOCYTES 1.8 %; MICROCYTOSIS 1+; MONOCYTES 4.4 % (0-9.0); MYELOCYTES 3.5 %; PLAT.SUFFICIENCY ADEQUATE; SEG.NEUTROPHILS 21.2 % (46.0-76.0); SPHEROCYTES 2+
[2017-12-10 18:58] LABS: TROP-I INTERPRETATION NEGATIVE; TROPONIN-I < 0.01 ng/mL (0.0-0.30)
[2017-12-10 19:06] LABS: AMPHETAMINE NEGATIVE (500 ng/mL); BARBITURATES NEGATIVE (200 ng/mL); BENZODIAZEPINES NEGATIVE (150 ng/mL); BUPRENORPHINE NEGATIVE (10 ng/mL); COCAINE NEGATIVE (150 ng/mL); METHADONE NEGATIVE (200 ng/mL); METHAMPHETAMINE NEGATIVE (500 ng/mL); OPIATES (MORPHINE) NEGATIVE (100 ng/mL); OXYCODONE NEGATIVE (100 ng/mL); PHENCYCLIDINE NEGATIVE (25 ng/mL); PROPOXYPHENE NEGATIVE (300 ng/mL); THC CANNABINOIDS NEGATIVE (50 ng/mL); TRICYCLIC ANTIDEPRESSANTS PRESUMPTIVE POSITIVE (300 ng/mL)
[2017-12-10 19:09] LABS: BACTERIA RARE /HPF; EPITHELIAL CELLS RARE /HPF; HYALINE CASTS 0-5 /LPF; MUCUS TRACE /LPF; RED BLOOD CELLS 0-5 /HPF (0-5); UCUL ADDED? YES; WHITE BLOOD CELLS 15-20 /HPF (0-5)
[2017-12-10 20:33] VITALS: BP 94/69
== END 2017-12-10 21:17 | disposition short-term general hospital (02) ==
LOC: EME 17:53
PROVIDERS: Emergency Medicine
DX: I46.9 Cardiac arrest, cause unspecified (principal); R09.02 Hypoxemia; T17.928A Food in respiratory tract, part unspecified causing other injury, initial encounter; I48.91 Unspecified atrial fibrillation; J98.11 Atelectasis; M50.321 Other cervical disc degeneration at C4-C5 level; M25.78 Osteophyte, vertebrae; I10 Essential (primary) hypertension; E78.5 Hyperlipidemia, unspecified; E11.9 Type 2 diabetes mellitus without complications; Z79.84 Long term (current) use of oral hypoglycemic drugs; Z79.82 Long term (current) use of aspirin; Z88.0 Allergy status to penicillin
CPT/HCPCS: 36600; 70450; 71045; 72125; 80048; 81003; 82150; 83605; 83690; 84484; 85025; 85610; 85730; 86850; 86900; 86901; 87040; 87070; 87077; 87086 GA; 87186; 87205; 93005; 94002; C1751; G0480; J7030; J7040